=== PATIENT | female | born 1945 | race African-American/Black ===

== ENCOUNTER 2018-08-18 01:55 | Emergency (ER) | payer MEDICARE ==
[~2018-08-18] VITALS: Ht 152.4 cm; Wt 46.7 kg
--- NOTE | 2018-08-18 02:00 | NUR ---
PT [facility]IBRA BYSTANDERS CALLED 911. PT WAS FOUND LYING ON THE GROUND AT [address]. PT C/C "IM COLD". NO OTHER MEDICAL COMPLAINTS. PT IN WET CLOTHING. CLOTHING REMOVED AND PT WEARING GOWN. AND COVERED WITH WARM BLANKETS. NO OTHER NEEDS AT THIS TIME. PT ON MONITOR IN BED 11. WILL CONTINUE TO MONITOR.
--- NOTE | 2018-08-18 03:32 | NUR ---
Patient is resting comfortably in bed with eyes closed. Easily aroused. VSS
--- NOTE | 2018-08-18 04:32 | NUR ---
PT GIVEN A SANDWICH AND WENT BACK TO SLEEP
[2018-08-18 05:11] VITALS: BP 134/61
--- NOTE | 2018-08-18 05:19 | NUR ---
Patient discharged to home in stable condition. Written and verbal after care instructions given. Patient verbalizes understanding of instruction. PROVIDED PT WITH CLOTHING AND HOMELESS RESOURCES PACKET, AND WILL FOLLOW UP WITH TABLET TESTER IN THE MORNING.
--- NOTE | 2018-08-18 08:10 | NUR ---
BETSY was informed by upscale security officer Gerhard that pt. was discharged from ED and was in the waiting room. BETSY met with pt. in the waiting room. Pt. is alert and oriented x 3. Pt. appears confused at times and is disheveled. Pt. states she is homeless and has been for three months. Pt. is originally from [place]. Pt. is unable to answer BETSY when asked where she lived prior to three months. Pt. states she receives $1450 in [employer] money per month. Pt. is mild mannered and pleasant. BETSY gave pt. a sweater and a pair of shoes.BETSY gave pt. coffee and TAP Card as well. Per pt. her name is Shani Redman and not Shani Rc per admitting notes. BETSY requested admitting to change to pt's correct name Shani Redman. Pt. appears gravely disabled and unable to care for self. SW to request GPS admission for grave disability. After discussing with GPS recruiter coordinator Ryan and Dr. Olivo, Pt.to re-register in ED for GPS admission. Crisis circulation clerk to assess pt. for grave disability and possible GPS admission. BETSY informed pt. for possible GPS admission and pt. agreed. BETSY updated ER CRN Gener regarding GPS admission for the pt.
== END 2018-08-18 05:42 | disposition home or self-care (01) ==
LOC: ER 01:57
DX: Z59.0 Homelessness (principal)
CPT/HCPCS: 82962-TC

== ENCOUNTER 2018-08-18 09:43 | Inpatient (IN) | payer MEDICARE ==
[~2018-08-18] VITALS: Ht 152.4 cm; Wt 50.8 kg
--- NOTE | 2018-08-18 10:30 | NUR ---
MEDICAL CLEARANCE PRIOR TO POSSIBLE [facility] ADMISSION
--- NOTE | 2018-08-18 10:34 | NUR ---
SAMANTHA OBREGON CALLED AND WILL BE HERE IN 1HR.
[2018-08-18 10:43] LABS: BASOPHILS % (AUTO) 0.1 % (0.0-2.0); HEMATOCRIT 32 % (33-45); HEMOGLOBIN 11.1 g/dL (11.5-14.8); LYMPHOCYTES # (AUTO) 0.8 /CMM (0.8-4.8); LYMPHOCYTES % (AUTO) 9.1 % (20.0-44.0); MEAN CORPUSCULAR HGB CONC 34 g/dl (31.0-36.0); MEAN CORPUSCULAR VOLUME 90 fL (82-100); MONOCYTES # (AUTO) 0.9 /CMM (0.1-1.30); MONOCYTES % (AUTO) 9.8 % (2.0-12.0); NEUTROPHILS # (AUTO) 7.5 /CMM (1.8-8.9); PLATELET COUNT (AUTO) 505 /CMM (150-450); WHITE BLOOD COUNT (AUTO) 9.2 K/uL (4.3-11.0)
[2018-08-18 10:52] LABS: CALCIUM, SERUM 8.8 mg/dL (8.5-10.1); CARBON DIOXIDE 26 mmol/L (21-32); CHLORIDE 97 mmol/L (98-107); CREATININE 1.6 mg/dL (0.6-1.3); GLUCOSE 161 mg/dL (74-106); POTASSIUM 3.7 mmol/L (3.5-5.1); SODIUM SERUM 134 mmol/L (136-145); UREA NITROGEN, BLOOD 39 mg/dL (7-18)
[2018-08-18 10:59] LABS: ACETAMINOPHEN 0 ug/ml (10-30); ALANINE AMINOTRANSFERASE 25 U/L (12-78); ALBUMIN 3.3 g/dL (3.4-5.0); ALCOHOL, BLOOD < 3 mg/dL (0-0); ALKALINE PHOSPHATASE 88 U/L (46-116); ASPARTATE AMINOTRANSFERASE 36 U/L (15-37); BILIRUBIN,DIRECT 0.4 mg/dL (0.0-0.2); SALICYLATE 4.2 mg/dL (2.8-20.0); TOTAL PROTEIN, SERUM 7.3 g/dL (6.4-8.2)
--- NOTE | 2018-08-18 11:24 | NUR ---
PT ASKING FOR WATER. AMBULATORY WITH NORMAL GAIT. ASSISTED BACK TO ROOM WITH WATER AND BLANKET. NO COMPLAINTS AT THIS TIME.
--- NOTE | 2018-08-18 12:26 | NUR ---
PANEL ON-CALL PAGED
--- NOTE | 2018-08-18 12:41 | NUR ---
PAGING PANEL ON-CALL
[2018-08-18 12:54] LABS: APPEARANCE,URINE Clear (CLEAR); BILIRUBIN,URINE SMALL (NEGATIVE); BLOOD, URINE Large Ery/uL (NEGATIVE); COLOR,URINE Yellow (YELLOW); KETONES,URINE Trace (NEGATIVE); LEUKOCYTE ESTERASE ,URINE Small (NEGATIVE); NITRITE, URINE Negative (NEGATIVE); PH,URINE 5.5 (5.0-8.0); PROTEIN,URINE 30 mg/dl (NEGATIVE); UGLUCOSE Negative (NEGATIVE)
[2018-08-18 12:56] LABS: BACTERIA,URINE 1+ /HPF (None Seen); SQUAMOUS EPITHELIAL CELL,UR Few /HPF (None Seen)
--- NOTE | 2018-08-18 14:36 | NUR ---
Patient is resting comfortably in bed with eyes closed. Easily aroused. VSS
--- NOTE | 2018-08-18 14:44 | NUR ---
REPORT GIVEN TO TAMANNA WHEELER FOR GP
--- NOTE | 2018-08-18 15:06 | NUR ---
PT TRANSFERRED TO GP VIA [facility]
[2018-08-18 15:30] VITALS: BP 135/68
[2018-08-18 16:00] VITALS: BP 120/71
[2018-08-18] MEDS ORDERED: MAG HYDROX/AL HYDROX/SIMETH 30 ML UDC PO PRN (16:00)
[2018-08-18] MEDS ORDERED: LORAZEPAM 0.5 MG TABLET PO PRN (16:00)
[2018-08-18] MEDS ORDERED: TEMAZEPAM 7.5 MG CAPSULE PO PRN (16:00)
[2018-08-18] MEDS ORDERED: MAGNESIUM HYDROXIDE 30 ML UDC PO PRN (16:00)
[2018-08-18] MEDS ORDERED: ACETAMINOPHEN 325 MG TABLET PO PRN (16:00)
--- NOTE | 2018-08-18 18:53 | NUR ---
Pt from ER. Admitted to [facility] for danger to self for suicidal ideation to overdose and gravely disabled for unable to care for self. pt is alert oriented x 2; episodes of confusion. refuse skin assessment. belongings collected. mrsa swab pending. med reconciliation done. pt placed in room 212A.
[2018-08-18 20:00] VITALS: BP 100/53
[2018-08-18] MEDS: OLANZAPINE 2.5 MG TABLET PO SCH (23:34)
[2018-08-19 08:00] VITALS: BP 107/58
[2018-08-19 08:06] LABS: ALANINE AMINOTRANSFERASE 24 U/L (12-78); ALBUMIN 2.6 g/dL (3.4-5.0); ALKALINE PHOSPHATASE 74 U/L (46-116); ASPARTATE AMINOTRANSFERASE 30 U/L (15-37); BILIRUBIN,TOTAL 0.7 mg/dL (0.2-1.0); CALCIUM, SERUM 8.7 mg/dL (8.5-10.1); CARBON DIOXIDE 27 mmol/L (21-32); CHLORIDE 107 mmol/L (98-107); CREATININE 0.9 mg/dL (0.6-1.3); GLUCOSE 82 mg/dL (74-106); POTASSIUM 3.8 mmol/L (3.5-5.1); SODIUM SERUM 142 mmol/L (136-145); TOTAL PROTEIN, SERUM 6.3 g/dL (6.4-8.2); UREA NITROGEN, BLOOD 20 mg/dL (7-18)
[2018-08-19 08:08] LABS: CHOLESTEROL 198 mg/dL (<200); HDL CHOLESTEROL 100 mg/dL (40-60); LDL 75 mg/dL (0-99); TRIGLYCERIDES 61 mg/dL (30-150)
--- NOTE | 2018-08-19 11:27 | NUR ---
INITIAL DISCHARGE PLAN: Patient wishes to be discharged to a SNF. SW will help form a safe and proper discharge in collaboration with MD.
[2018-08-19 16:00] VITALS: BP 105/47
[2018-08-19 20:00] VITALS: BP 111/57
[2018-08-19] MEDS: OLANZAPINE 2.5 MG TABLET PO SCH (21:02)
[2018-08-20 08:00] VITALS: BP 103/59
[2018-08-20 16:00] VITALS: BP 100/63
[2018-08-20 20:00] VITALS: BP 117/52
[2018-08-20] MEDS: OLANZAPINE 2.5 MG TABLET PO SCH (22:15)
[2018-08-21 08:00] VITALS: BP 109/64
[2018-08-21 16:00] VITALS: BP 112/63
--- NOTE | 2018-08-21 19:30 | NUR ---
GPS RN NOTE, RECEIVED PATIENT AWAKE AND IN BED NO S/S OR COMPLAINTS OF PAIN AT THIS TIME. PATIENT IS DISPLAYING NO S/S OF APPARENT DISTRESS AT THIS TIME. PATIENT BREATHING IS UNLABORED WITH EQUAL RISE AND FALL OF THE CHEST. PATIENT IS ALERT AND ORIENTED X 2 ON ROOM AIR WITH A SPO2 0F 95%. PATIENT REFUSED SKIN ASSESSMENT TODAY. PATIENT IS MED COMPLIANT, DISORGANIZED, DELUSIONAL, COOPERATIVE, CONFUSED AT TIME, AND NEEDS REORIENTATION. PATIENT DENIES SUICIDE AND HOMICIDAL IDEATIONS AT THIS TIME. PATIENT ASSISTED WITH TURNING AND REPOSITIONING Q2HR AND PRN FOR COMFORT AND CIRCULATION. PATIENT HAS NO NEEDS AT THIS TIME. PATIENT EDUCATED ON THE USE OF THE CALL ADORNO. PATIENT BED SIDE RAILS ARE UP X 2 FOR SAFETY, BED IS LOCKED AND LOW. WILL CONTINUE TO MONITOR AND MAINTAIN SAFETY Q15 MIN WITH THE HELP OF STAFF.
[2018-08-21 20:00] VITALS: BP 136/71
[2018-08-21] MEDS: OLANZAPINE 2.5 MG TABLET PO SCH (21:53)
[2018-08-22 08:12] VITALS: BP 143/70
[2018-08-22 16:00] VITALS: BP 134/77
[2018-08-22 20:00] VITALS: BP 119/54
[2018-08-22] MEDS: OLANZAPINE 2.5 MG TABLET PO SCH (21:05)
[2018-08-23 08:00] VITALS: BP 100/55
--- NOTE | 2018-08-23 11:37 | NUR ---
BETSY faxed SNF referral to Ivania Rowell at [facility] Address: [address], [place] [address] for review.
--- NOTE | 2018-08-23 12:44 | NUR ---
SW received a call from Ivania Rowell at [facility] Address: [address], [place] [address] stating pt was not accepted to the facility due to being placed on a hold for SI and history of 3/4 suicide attempts.
--- NOTE | 2018-08-23 13:18 | NUR ---
BETSY faxed SNF referral to Cassandra field marketing team leader at [facility] Address: [address], [place] [address] for review.
--- NOTE | 2018-08-23 15:50 | NUR ---
SW received a call from Evin, material coordinator at at [facility] Address: [address] [place] [address] stating pt has been accepted to the facility.
[2018-08-23 15:59] VITALS: BP 108/55
[2018-08-23] MEDS: OLANZAPINE 2.5 MG TABLET PO SCH (21:54)
[2018-08-24 08:00] VITALS: BP 128/75
[2018-08-24 16:00] VITALS: BP 126/70
[2018-08-24 20:17] VITALS: BP 114/60
[2018-08-24] MEDS: OLANZAPINE 2.5 MG TABLET PO SCH (20:34)
[2018-08-24] MEDS: MEMANTINE HCL 5 MG TABLET PO SCH (22:37)
[2018-08-25 08:00] VITALS: BP 118/64
[2018-08-25 16:00] VITALS: BP 148/88
[2018-08-25 20:00] VITALS: BP 149/85
[2018-08-25] MEDS: OLANZAPINE 2.5 MG TABLET PO SCH (21:02)
[2018-08-25] MEDS: MEMANTINE HCL 5 MG TABLET PO SCH (21:02)
[2018-08-26 08:00] VITALS: BP 95/63
--- NOTE | 2018-08-26 10:06 | NUR ---
DR. PATEL GAVE AN ORDER TO D/C HOLD AND D/C TO [facility] AND TO FOLLOW UP WITH PSYCH AND MEDICAL DOCTORS AND TO CONTINUE SAME MEDS INCLUDING PRN.
--- NOTE | 2018-08-26 13:21 | NUR ---
DISCHARGE NOTE: Pt was discharged at 1:00pm to [facility] Address: [address] [place] [address] via [facility] ambulance trip #[id number] . Pt has no family to notify. Pts mood was euthymic with congruent affect. Pt denied visual/auditory hallucinations and denied suicidal/homicidal ideations. Pt will be under the care of Psychiatrist: Dr. Kristin Deal [address], [place] [address] [phone] and Credit Officer: Dr. Randy Lizarraga Address: [address], [place] [address] . Patient was provided referrals to address her substance and alcohol use. Patient was referred to the [address] [address] / and was encouraged to present at 9am on Wednesday August 29, 2018. Additional resources, included [facility] [address] [place] [address] and [facility] [address] [place] [address] . For smoking cessation, patient was referred to the [employer] and [employer] [id number]. Pt will also participate in a telephone meeting with [employer] [phone] on Monday August 27, 2018 at 8:00am. The multidisciplinary exitcare form was done, printed, signed, and given to the patient.
--- NOTE | 2018-08-26 13:25 | NUR ---
GPS/RN PT D/C TO [facility]. VSS NO SI OR HI REPORTED. PROPERTY RETURNED. PT REFUSED TO SIGN D/C PAPERWORK. EXIT CARE AND MEDS LIST PROVIDED TO AMBULANCE. REPORT GIVEN TO ADMITTING NURSE AT [facility].
--- NOTE | 2018-09-09 14:59 | NUR ---
15 DAY SUBSTANCE ABUSE FOLLOW UP: excluded due to D/C to SNF.
== END 2018-08-26 13:25 | DRG 885 ==
LOC: ER 09:46 → GPS 14:51
PROVIDERS: ADMIT Psychiatry & Neurology Psychosomatic Medicine; ATTEND Psychiatry & Neurology Psychosomatic Medicine
DX: F20.9 Schizophrenia, unspecified (principal); R45.851 Suicidal ideations; Z59.0 Homelessness; F03.90 Unspecified dementia, unspecified severity, without behavioral disturbance, psychotic disturbance, mood disturbance, and anxiety; D47.3 Essential (hemorrhagic) thrombocythemia; F09 Unspecified mental disorder due to known physiological condition; F32.9 Major depressive disorder, single episode, unspecified
CPT/HCPCS: 36415; 70450-TC; 80048-TC; 80053-TC; 80061-TC; 80076-TC; 80305; 81000-TC; 82962-TC; 84443-TC; 85025-TC; 87081-TC; G0480